=== PATIENT | male | born 1960 | race Caucasian/White ===

== ENCOUNTER 2023-09-17 20:06 | Emergency (ER) | payer MEDICARE, SELFPAY ==
[2023-09-17 20:09] VITALS: BP 143/70; PULSE 69; RESP 20; TEMP 36.9; O2SAT 95; BMI 20.9
--- NOTE | 2023-09-17 22:07 | ED.WOUNDLAC ---
HPI - Wound/Laceration General Chief Complaint: Wound/Laceration Stated Complaint: Foot inj Time Seen by Provider: 09/17/23 22:07 Source: patient Mode of arrival: Ambulatory Limitations: no limitations History of Present Illness HPI narrative: 63-year-old male with history of diabetes, coronary artery disease with prior cardiac stents who presents with complaint of puncture wound to his left foot 48 hours ago. Patient was wearing rubber soled shoes. He states he did not feel any pain. He states he has neuropathy, he had washed through a parking lot, when he returned home took off his shoe realize there was a nail in it. He states he pulled it out it did appear to be intact in its entirety. He states since then no drainage but has had increasing redness tenderness and a small amount of clear drainage from the foot at the site. He states his tetanus is not up-to-date. He is concerned about infection seeking treatment. Patient states he is on aspirin 81 mg daily, medication for hypertension and diabetes. States he does check his feet daily. Denies any surgeries besides cardiac stents. States he is allergic to penicillin and sulfa gets itchy. He states he can tolerate amoxicillin without issue. He states he is had ciprofloxacin in the past without any issues. Does use tobacco daily. Related Data Home Medications Medication Instructions Recorded Confirmed aspirin 81 mg tablet,delayed 81 mg PO Q ##0 12/03/17 release Previous Rx's Medication Instructions Recorded ciprofloxacin HCl 500 mg tablet 500 mg PO Q12H #20 tabs 09/17/23 Allergies Allergy/AdvReac Type Severity Reaction Status Date / Time Penicillins [PENICILLINS] Allergy Unknown Unverified 03/07/18 12:50 Sulfa (Sulfonamide Allergy Unknown Unverified 03/07/18 12:50 Antibiotics) [SULFA (SULFONAMIDE ANTIBIOTICS)] Review of Systems Review of Systems ROS Unobtainable: All systems reviewed & are unremarkable except as noted in HPI and below Patient History Social History Smoking Status: Current every day smoker Smoking Status: Current every day smoker alcohol intake frequency: 0-2 drinks per day Substance Use Type: painkillers Exam Narrative Exam Narrative: GENERAL: Alert and oriented x three,, well-appearing male in no acute distress. HEENT: Head normocephalic, atraumatic, EOMI, pupils reactive, face symmetric, moist mucous membranes NECK: Supple, full range of motion CARDIOVASCULAR: Regular rate and rhythm without murmurs, rubs or gallops. RESPIRATORY: Breath sounds equal bilaterally, no wheezes rales or rhonchi. ABDOMEN: Soft, nontender. Normoactive bowel sounds all 4 quadrants. No guarding or rebound, rigidity, no mass EXTREMITIES: Normal range of motion, no clubbing or edema. Neurovascularly intact. Patient has a puncture wound over the ball of the left foot. There is a slight streak of redness running up on the medial side of the foot about 0.5 cm in length running about 5 cm. Patient does not have any drainage when palpated, no fluid collection or abscess appreciated no large area of surrounding cellulitis. Patient is minimally tender to touch. There is no large ulceration. No foreign body is palpated. Patient does have sensation to touch, cap refill less than 2 seconds in all 5 toes with no other wounds or lacerations appreciated. 2+ dorsalis pedis. NEUROLOGICAL: Cranial nerves II through XII grossly intact. Moving all extremities, normal gait. SKIN: Warm, dry, no petechiae, no rashes or lesions other than noted above. Initial Vital Signs Initial Vital Signs: Vital Signs Temperature 98.4 F 09/17/23 20:09 Pulse Rate 69 09/17/23 20:09 Respiratory Rate 20 09/17/23 20:09 Blood Pressure 143/70 H 09/17/23 20:09 Pulse Oximetry 95 09/17/23 20:09 Oxygen Delivery Method Room Air 09/17/23 20:09 Course Orders Ordered: Discontinued Medications Ciprofloxacin (Ciprofloxacin 250 Mg Tablet) 500 mg PO NOW ONE Stop: 09/17/23 22:15 Last Admin: 09/17/23 22:24 Dose: 500 mg Documented By: DEVAN Diphtheria/Tetanus/Acell Pertussis (Tet,Diph,Pertuss(Acell),Vac/Pf 0.5 Ml Syringe) 0.5 ml IM .ONCE ONE Stop: 09/17/23 22:15 Last Admin: 09/17/23 22:24 Dose: 0.5 ml Documented By: DEVAN Vital Signs Vital signs: Vital Signs - 8 hr 09/17/23 20:09 09/17/23 22:24 Temperature 98.4 F Pulse Rate 69 66 Respiratory Rate 20 16 Blood Pressure 143/70 H 130/70 Pulse Oximetry 95 95 Oxygen Delivery Method Room Air Room Air MDM - Wound/Laceration MDM Narrative Medical decision making narrative: 63-year-old male who had a puncture wound his foot 48 hours ago with a nail through a rubber or social shoe. Patient states he removed the nail he states he visualized its entirety. Discussed with the still like to obtain an x-ray as there are potential for small amounts of metal or retained foreign bodies. Patient politely defers and understands that there is a small chance there could be retained foreign body. He does have a streak of redness, no active drainage on palpation. Patient states he tolerated Cipro while in the past in his covered with oral antibiotic. Patient is tetanus was updated. Patient states he does check his feet daily and will continue to do so. Discussed return precautions and all questions answered. Discharge Plan Departure Patient Disposition: Home Clinical Impression: Puncture wound of foot Instructions: DI for Puncture Wound Activity Restrictions/Additional Instructions: Please follow-up for recheck if your symptoms are not rapidly improving over the next 2-3 days. Your tetanus was updated today. Please check your foot daily. Take 1 tablet every 12 hours times 10 days. Prescription sent to [facility] in [place]. Please return for fevers increasing redness, swelling, purulent drainage, increasing pain or other new or concerning changes. Prescriptions: New ciprofloxacin HCl 500 mg tablet 500 mg PO Q12H Qty: 20 0RF No Action aspirin 81 MG tablet,delayed release (DR/EC) 81 mg PO Q Qty: 0 Stand Alone Forms: Patient Portal/API
[2023-09-17 22:24] VITALS: BP 130/70; PULSE 66; RESP 16; O2SAT 95
[2023-09-17] MEDS: CIPROFLOXACIN 250 MG TABLET 500 MG PO (22:24)
[2023-09-17] MEDS: TET,DIPH,PERTUSS(ACELL),VAC/PF 0.5 ML SYRINGE IM (22:24)
== END 2023-09-17 22:27 | disposition home or self-care (01) ==
PROVIDERS: Emergency Provider Emergency Medicine
DX: S91.332A Puncture wound without foreign body, left foot, initial encounter (principal); Z23 Encounter for immunization
CPT/HCPCS: 90471; 99283; 90715